=== PATIENT | female | born 1960 | race Two or more races ===

== ENCOUNTER → 2025-10-01 | Emergency (ER) | payer OTHER ==
[~2025-10-01] VITALS: Ht 154.9 cm; Wt 70.3 kg
[~2025-10-01] MED LIST: 0.9 % SODIUM CHLORIDE 1,000 ML IV SCH; ACETAMINOPHEN 325 MG TABLET PO ONE; CEFTRIAXONE SODIUM 2,000 MG VIAL IV ONE; CEFUROXIME500 MG PO; INSULIN GLARGINE,HUM.REC.ANLOG 1,000 UNITS/10 ML UNITS SUBCUTANEO ONE; INSULIN REGULAR, HUMAN 1,000 UNIT/10 ML UNITS SUBCUTANEO ONE; NASAL MIST126 ML; PEPCID AC20 MG PO
[2025-10-01 13:21] VITALS: BP 152/79; O2SAT 100
[2025-10-01 18:03] LABS: BASO % 0.1 % (0.1-1.2); EOS # 0.05 (0.04-0.54); EOS % 0.5 % (0.7-7.0); LYMPH # 2.09 (1.18-3.74); LYMPH % 22.6 % (19.3-53.1); MEAN PLATELET VOLUME 9.00 fl (9.4-12.4); MONO # 0.57 (0.24-0.82); MONO % 6.2 % (4.7-12.5); NEUT # 6.48 (1.56-6.13); NEUT % 70.3 % (34.0-71.1); RED CELL DISTRIBUTION WIDTH 13.3 % (11.6-14.4)
[2025-10-01 18:05] LABS: ERYTHROCYTE SEDIMENTATION RATE 95 mm/hr (0-30)
[2025-10-01 19:01] LABS: ALT/SGPT 20.0 U/L (12-78); AST/SGOT 17.0 U/L (15-37); BILIRUBIN TOTAL 0.29 mg/dL (0.3-1.2); BUN CREA RATIO 24.0 (7.0-25.0); CREATININE SERUM 0.88 mg/dL (0.55-1.02); GFR 64.09; GLOBULINA 5.0 G/DL (2.4-3.5)
[2025-10-01 19:13] LABS: GLUCOSE FASTING 332.0 mg/dL (65-100); OSMOLALITY SERUM 292.0 MOSM/KG (275-295)
[2025-10-01 22:10] LABS: URINE APPEARANCE Clear; URINE BILIRRUBIN Negative (NEGATIVE); URINE BLOOD Small; URINE COLOR Yellow; URINE KETONE Trace (NEGATIVE); URINE LEUKOCYTE Negative; URINE NITRATE Negative; URINE PROTEIN 30 (NEGATIVE); URINE UROBILINOGEN 0.2 E.U./dl
[2025-10-01 22:15] LABS: URINE BACTERIA 40.8 uL (0.0-1933); URINE EPITHELIAL CELLS 8.4 uL (0.0-38.8); URINE RBC 174.6 uL (0.0-20.8); URINE WBC 34.7 uL (0.0-23.2)
[2025-10-01 22:23] LABS: URINE CAST 0.00 uL (0.0-1.40); URINE GLUCOSE >=1000 MG/DL (NEGATIVE)
== END | disposition home or self-care (01) ==
LOC: ER 12:48
PROVIDERS: General Practice
DX: L98.499 Non-pressure chronic ulcer of skin of other sites with unspecified severity (principal); L08.9 Local infection of the skin and subcutaneous tissue, unspecified; E11.621 Type 2 diabetes mellitus with foot ulcer; L97.509 Non-pressure chronic ulcer of other part of unspecified foot with unspecified severity; I10 Essential (primary) hypertension
CPT/HCPCS: 36415; 73590; 73610; 96365; 96366; 99283; J7030